=== PATIENT | male | born 1975 | race Two or more races ===

== ENCOUNTER 2019-03-18 13:01 | Inpatient (IN) | payer OTHER ==
--- NOTE | 2019-03-18 13:57 | ED ---
General Adult HPI - General Source: EMS Mode of arrival: EMS Limitations: no limitations <Bonifacio Coleman - Last Filed: 03/18/19 17:10> <Reuben Mckeon - Last Filed: 03/18/19 18:59> - General Chief complaint: Psychiatric Symptoms Stated complaint: Mental health Time Seen by Provider: 03/18/19 13:11 - History of Present Illness Initial comments: Dictation was produced using [employer] dictation software. please excuse any grammatical, word or spelling errors. Chief Complaint: 43-year-old male petition for psychiatric complaint. History of Present Illness: Patient is a 43-year-old male. He is a daily EtOH abuser. He was brought in by EMS. Patient allegedly told his family member that he was suicidal and wanted to kill himself. EMS reports that family reports he has history of chronic stress disorder. Been depressed lately and is having thoughts of suicide. Reports that he wants to jump off a month. Patient did report daily EtOH today. Medical complaints at this time. The ROS documented in this emergency department record has been reviewed and confirmed by me. Those systems with pertinent positive or negative responses have been documented in the HPI. All other systems are other negative and/or noncontributory. PHYSICAL EXAM: General Impression: Alert and oriented x3, not in acute distress HEENT: Normocephalic atraumatic, extra-ocular movements intact, pupils equal and reactive to light bilaterally, mucous membranes moist. Cardiovascular: Heart regular rate and rhythm, S1&S2 audible, no murmurs, rubs or gallops Chest: Lungs clear to auscultation bilaterally, no rhonchi, no wheeze, no rales Abdomen: Bowel sounds present, abdomen soft, non-tender, non-distended, no organomegaly Musculoskeletal: Pulses present and equal in all extremities, no peripheral edema Motor: no focal deficits noted Neurological: CN II-XII grossly intact, no focal motor or sensory deficits noted Skin: Intact with no visualized rashes Psych: Normal affect and mood ED course: 43 y Old male presents with suicidal ideation. Patient is a daily alcohol drinker. Patient clinically inebriated. Vital signs upon arrival shows heart rate of 108 hours vital signs within acceptable limits. Pending labs. Patient is sent out to Dr. Mckeon for follow-up of pending labs. (Bonifacio Coleman) - Related Data Home Medications Medication Instructions Recorded Confirmed Omeprazole 20 mg PO DAILY 03/18/19 03/18/19 Allergies Allergy/AdvReac Type Severity Reaction Status Date / Time No Known Allergies Allergy Verified 03/18/19 13:33 Review of Systems ROS Other: All systems not noted in ROS Statement are negative. <Bonifacio Coleman - Last Filed: 03/18/19 17:10> ROS Other: All systems not noted in ROS Statement are negative. <Reuben Mckeon - Last Filed: 03/18/19 18:59> ROS Statement: Those systems with pertinent positive or pertinent negative responses have been documented in the HPI. Past Medical History Past Medical History: Hypertension History of Any Multi-Drug Resistant Organisms: None Reported Additional Past Surgical History / Comment(s): throat surgery to remove polyps Past Psychological History: PTSD Past Alcohol Use History: Occasional Past Drug Use History: None Reported <Bonifacio Coleman - Last Filed: 03/18/19 17:10> General Exam Limitations: no limitations <Bonifacio Coleman - Last Filed: 03/18/19 17:10> Course Vital Signs 03/18/19 13:30 Temperature 98.1 F Pulse Rate 108 H Respiratory 18 Rate Blood Pressure 181/151 O2 Sat by Pulse 97 Oximetry Medical Decision Making - Lab Data Result diagrams: 03/18/19 17:28 03/18/19 17:28 <Reuben Mckeon - Last Filed: 03/18/19 18:59> - Medical Decision Making Patient's breath alcohol test was 295. I spoke with Dr. Schrader she agreed to admit the patient admitted the patient. (Reuben Mckeon) - Lab Data Lab Results 03/18/19 03/18/19 03/18/19 Range/Units 17:28 17:28 17:28 WBC 3.6 L (3.8-10.6) k/uL RBC 4.33 (4.30-5.90) m/uL Hgb 15.4 (13.0-17.5) gm/dL Hct 44.6 (39.0-53.0) % MCV 102.9 H (80.0-100.0) fL MCH 35.6 H (25.0-35.0) pg MCHC 34.6 (31.0-37.0) g/dL RDW 13.4 (11.5-15.5) % Plt Count 207 (150-450) k/uL Neutrophils % 52 % Lymphocytes % 27 % Monocytes % 15 % Eosinophils % 3 % Basophils % 1 % Neutrophils # 1.9 (1.3-7.7) k/uL Lymphocytes # 1.0 (1.0-4.8) k/uL Monocytes # 0.5 (0-1.0) k/uL Eosinophils # 0.1 (0-0.7) k/uL Basophils # 0.0 (0-0.2) k/uL Macrocytosis Slight Sodium 145 (137-145) mmol/L Potassium 4.9 (3.5-5.1) mmol/L Chloride 105 (98-107) mmol/L Carbon Dioxide 28 (22-30) mmol/L Anion Gap 12 mmol/L BUN 5 L (9-20) mg/dL Creatinine 0.72 (0.66-1.25) mg/dL Est GFR (CKD-EPI)AfAm >90 (>60 ml/min/1.73 sqM) Est GFR (CKD-EPI)NonAf >90 (>60 ml/min/1.73 sqM) Glucose 105 H (74-99) mg/dL Calcium 9.5 (8.4-10.2) mg/dL Magnesium 1.7 (1.6-2.3) mg/dL Disposition <Bonifacio Coleman - Last Filed: 03/18/19 17:10> Time of Disposition: 18:59 <Reuben Mckeon - Last Filed: 03/18/19 18:59> Clinical Impression: Alcohol intoxication, Suicidal ideations Disposition: ADMITTED IP TO THIS HOSP Referrals: [facility],Clinic [Primary Care Provider] - 1-2 days
[2019-03-18 17:39] LABS: Basophils % (A) 1 %; Eosinophils # (A) 0.1 k/uL (0-0.7); Eosinophils % (A) 3 %; HCT 44.6 % (39.0-53.0); HGB 15.4 gm/dL (13.0-17.5); Lymphocytes % (A) 27 %; MCH 35.6 pg (25.0-35.0); MCHC 34.6 g/dL (31.0-37.0); MCV 102.9 fL (80.0-100.0); Macrocytosis Slight; Monocytes # (A) 0.5 k/uL (0-1.0); Monocytes % (A) 15 %; Neutrophils # (A) 1.9 k/uL (1.3-7.7); Neutrophils % (A) 52 %; Platelet Count 207 k/uL (150-450); RBC 4.33 m/uL (4.30-5.90); RDW 13.4 % (11.5-15.5); WBC 3.6 k/uL (3.8-10.6)
[2019-03-18 17:48] LABS: Anion Gap 12 mmol/L; Blood Urea Nitrogen 5 mg/dL (9-20); Calcium 9.5 mg/dL (8.4-10.2); Carbon Dioxide 28 mmol/L (22-30); Chloride 105 mmol/L (98-107); Glucose 105 mg/dL (74-99); Potassium 4.9 mmol/L (3.5-5.1); Sodium 145 mmol/L (137-145)
[2019-03-18] MEDS ORDERED: LORazepam 1 MG TAB PO STA (17:49)
[2019-03-18] MEDS ORDERED: SODIUM CHLORIDE 0.9% 1,000 ML IV ONE (19:00)
[2019-03-18] MEDS ORDERED: LORazepam 2 MG/ML INJ IV PRN ×2 (19:01)
[2019-03-18] MEDS ORDERED: THIAMINE 100 MG/ML 2 ML VIAL IM STA (19:01)
[2019-03-18 20:50] LABS: Amphetamine Screen,Urine Not Detected (NotDetected); Barbiturate Screen,Urine Not Detected (NotDetected); Benzodiazepines Screen,Urine Detected (NotDetected); Cocaine Screen,Urine Not Detected (NotDetected); Methadone Screen, Urine Not Detected (NotDetected); Opiate Screen,Urine Not Detected (NotDetected); Oxycodone Screen, Urine Not Detected (NotDetected); Phencyclidine Screen,Urine Not Detected (NotDetected); Tricyclic Antidepressant,Urine Not Detected (NotDetected); Urn Cannabinoid Scrn Not Detected (NotDetected)
[2019-03-18 21:23] VITALS: BMI 25.8
[2019-03-19] MEDS: LORazepam 2 MG/ML INJ IV PRN ×2 (02:53→08:35)
[2019-03-19] MEDS ORDERED: THIAMINE 100 MG TAB PO SCH (07:30)
[2019-03-19 12:02] VITALS: BP 114/55; PULSE 78; RESP 17; TEMP 98.4
--- NOTE | 2019-03-19 15:18 | P.HPIM ---
History of Present Illness 43-year-old gentleman was a brought into the hospital as he was abusing alcohol patient last drink was yesterday. Patient drinks about 15 drinks of wine a day. He denies using on regular basis he says he doesn't drink whenever his daughter is with him which is on alternate days and weekends. Although patient is having active withdrawals at this time. Patient apparently was suicidal when he was drinking although patient denied any suicidal ideations at this time. Patient has a sitter and psychiatric was consulted. Patient is willing to quit alcohol but he says he cannot stay in the hospital upon extensive counseling patient is willing to stay at until tomorrow morning even after clearance by psychiatry. Review of Systems REVIEW OF SYSTEMS: CONSTITUTIONAL: No fever, no malaise, no fatigue. HEENT: No recent visual problems or hearing problems. Denied any sore throat. CARDIOVASCULAR: No chest pain, orthopnea, PND, no palpitations, no syncope. PULMONARY: No shortness of breath, no cough, no hemoptysis. GASTROINTESTINAL: No diarrhea, no nausea, no vomiting, no abdominal pain. NEUROLOGICAL: No headaches, no weakness, no numbness. HEMATOLOGICAL: Denies any bleeding or petechiae. GENITOURINARY: Denies any burning micturition, frequency, or urgency. MUSCULOSKELETAL/RHEUMATOLOGICAL: Denies any joint pain, swelling, or any muscle pain. ENDOCRINE: Denies any polyuria or polydipsia. The rest of the 14-point review of systems is negative. Past Medical History Past Medical History: Hypertension Additional Past Medical History / Comment(s): punctured right ear drum; scrapnel wound right posterior leg History of Any Multi-Drug Resistant Organisms: None Reported Additional Past Surgical History / Comment(s): throat surgery to remove polyps Past Anesthesia/Blood Transfusion Reactions: Postoperative Nausea & Vomiting (PONV) Past Psychological History: PTSD Smoking Status: Former smoker Past Alcohol Use History: Occasional Past Drug Use History: None Reported - Past Family History Daughter(s) Family Medical History: No Reported History Father Family Medical History: Hypertension Additional Family Medical History / Comment(s): choley Medications and Allergies Home Medications Medication Instructions Recorded Confirmed Type Omeprazole 20 mg PO DAILY 03/18/19 03/18/19 History Allergies Allergy/AdvReac Type Severity Reaction Status Date / Time No Known Allergies Allergy Verified 03/18/19 13:33 Physical Exam Vitals: Vital Signs Temp Pulse Pulse Resp BP BP Pulse Ox 03/19/19 12:01 98.4 F 78 17 114/55 97 03/19/19 05:13 98.2 F 83 18 159/101 98 03/18/19 20:48 97.8 F 100 18 155/99 98 03/18/19 19:54 97.9 F 98 200 H 140/98 99 03/18/19 19:00 98.3 F 89 20 165/72 99 Intake and Output 03/19/19 03/19/19 03/19/19 06:59 14:59 22:59 Intake Total 500 Balance 500 Intake: Intake, IV Titration 500 Amount Sodium Chloride 0.9% 1, 500 000 ml @ 100 mls/hr IV . Q10H ONE Rx#:[id number] Other: Voiding Method Toilet # Voids 3 PHYSICAL EXAMINATION: GENERAL: The patient is alert and oriented x3, not in any acute distress. Well developed, well nourished. patient is tremulous, anxious HEENT: Pupils are round and equally reacting to light. EOMI. No scleral icterus. No conjunctival pallor. Normocephalic, atraumatic. No pharyngeal erythema. No thyromegaly. CARDIOVASCULAR: S1 and S2 present. No murmurs, rubs, or gallops. PULMONARY: Chest is clear to auscultation, no wheezing or crackles. ABDOMEN: Soft, nontender, nondistended, normoactive bowel sounds. No palpable organomegaly. MUSCULOSKELETAL: No joint swelling or deformity. EXTREMITIES: No cyanosis, clubbing, or pedal edema. NEUROLOGICAL: Gross neurological examination did not reveal any focal deficits. SKIN: No rashes. Results CBC & Chem 7: 03/18/19 17:28 03/18/19 17:28 Labs: Abnormal Lab Results - Last 24 Hours (Table) 03/18/19 03/18/19 03/18/19 Range/Units 17: 17: 20:15 WBC 3.6 L (3.8-10.6) k/uL MCV 102.9 H (80.0-100.0) fL MCH 35.6 H (25.0-35.0) pg BUN 5 L (9-20) mg/dL Glucose 105 H (74-99) mg/dL U Benzodiazepines Scrn Detected H (NotDetected) Thrombosis Risk Factor Assmnt - Choose All That Apply Any of the Below Risk Factors Present?: Yes Each Factor Represents 1 point: Age 41-60 years, Obesity (BMI >25) Other Risk Factors: No Other congenital or acquired thrombophilia - If yes, enter type in comment: No Thrombosis Risk Factor Assessment Total Risk Factor Score: 2 Thrombosis Risk Factor Assessment Level: Low Risk Assessment and Plan Plan: -delirium tremens, alcohol withdrawal: Patient is on Ativan CWP protocol IV fluids thiamine multivitamin supplementation which will be continued patient was started on Protonix as well -alcohol abuse: Counseling was provided -possible suicidal ideation and depression: Psychiatric was consulted -DVT prophylaxis: Early ambulation
--- NOTE | 2019-03-19 16:00 | P.CN ---
Psychiatric Consult - . Consult date: 03/19/19 Consult:: 03/19/19 15:55 Suicidal Assessment and Plan (1) Adjustment disorder Narrative/Plan: 43-year-old gentleman was a brought into the hospital as he was abusing alcohol patient last drink was yesterday. Patient drinks about 15 drinks of wine a day. He denies using on regular basis he says he doesn't drink whenever his daughter is with him which is on alternate days and weekends. Although patient is having active withdrawals at this time. Patient apparently was suicidal when he was drinking although patient denied any suicidal ideations at this time. Patient has a sitter and psychiatric was consulted. Patient is willing to quit alcohol . Past Medical History Past Medical History: Hypertension Additional Past Medical History / Comment(s): punctured right ear drum; scrapnel wound right posterior leg History of Any Multi-Drug Resistant Organisms: None Reported Additional Past Surgical History / Comment(s): throat surgery to remove polyps Past Anesthesia/Blood Transfusion Reactions: Postoperative Nausea & Vomiting (PONV) Past Psychological History: PTSD Smoking Status: Former smoker Past Alcohol Use History: Occasional Past Drug Use History: None Reported - Past Family History Daughter(s) Family Medical History: No Reported History Father Family Medical History: Hypertension Additional Family Medical History / Comment(s): choley Medications and Allergies Home Medications Medication Instructions Recorded Confirmed Type Omeprazole 20 mg PO DAILY 03/18/19 03/18/19 History Allergies Allergy/AdvReac Type Severity Reaction Status Date / Time No Known Allergies Allergy Verified 03/18/19 13:33 Mental status examination: The patient presents alert, pleasant, and cooperative. There calmly seated without any agitated behavior. He reports that [his] mood is good. Affect is congruent and euthymic. [He] deny having any suicidal or homicidal ideation intent or plan. [He] denies any auditory or visual hallucinations. There is no evidence of any delusional thought content. [His] thought process is linear and goal-directed. [His] speech is fluent and nonpressured. [His] memory and concentration is grossly intact for the purposes of this session. Psychiatric impression: Adjustment disorder recent divorce Psychiatric recommendations: When medically stable able to discharge patient. He is not suicidal nor homicidal. He is not a candidate for [address] [place] [address]. [facility] and [facility] has an appointment coming up for counseling. Thank you for the wonderful consult enjoyed the patient immensely Harry Hernandez D.O. PhD Current Visit: Yes Status: Acute Priority: Low Code(s): F43.20 - ADJUSTMENT DISORDER, UNSPECIFIED SNOMED Code(s): 60933959 Time with Patient: Less than 30
--- NOTE | 2019-03-19 17:16 | P.DS ---
Providers Date of admission: 03/19/19 09:59 Attending physician: Paco Sanz MD Consults: 03/18/19 23:45 Consult Physician Urgent Consulting Provider: Harry Hernandez Consult Reason/Comments: suicidal ideations, etoh intox Do you want consulting provider notified?: Already Contacted Primary care physician: [facility] Hospital Course: Patient left AGAINST MEDICAL ADVICE Plan - Discharge Summary Discharge Rx Participant: No New Discharge Prescriptions: No Action Omeprazole 20 mg PO DAILY Discharge Medication List Omeprazole 20 mg PO DAILY 03/18/19 [History] Follow up Appointment(s)/Referral(s): [facility],Clinic [Primary Care Provider] - 1-2 days Discharge Disposition: Left Against Medical Advice
[2019-03-20] MEDS ORDERED: PANTOPRAZOLE 40 MG TABLET PO SCH (07:30)
== END 2019-03-19 16:50 | disposition left against medical advice (07) | DRG 894 ==
LOC: EC 13:01 → 3NMEDONC 19:00 → OBSVTOIN 03-19 09:59
PROVIDERS: ADMIT Internal Medicine; ATTEND Internal Medicine
DX: F10.231 Alcohol dependence with withdrawal delirium (principal); R45.851 Suicidal ideations; F43.20 Adjustment disorder, unspecified; Y90.8 Blood alcohol level of 240 mg/100 ml or more; E66.9 Obesity, unspecified; I10 Essential (primary) hypertension; F10.229 Alcohol dependence with intoxication, unspecified; F43.10 Post-traumatic stress disorder, unspecified; Z87.891 Personal history of nicotine dependence; Z82.49 Family history of ischemic heart disease and other diseases of the circulatory system; Z79.899 Other long term (current) drug therapy; Z71.41 Alcohol abuse counseling and surveillance of alcoholic; Z68.26 Body mass index [BMI] 26.0-26.9, adult
CPT/HCPCS: 36415; 80048; 80306; 82075; 83735; 85025; 96372; 99285

== ENCOUNTER 2019-03-31 07:56 | Emergency (ER) | payer OTHER ==
--- NOTE | 2019-03-31 09:37 | ED ---
Psych HPI - General Chief Complaint: Psychiatric Symptoms Stated Complaint: pickle maker order Time Seen by Provider: 03/31/19 08:08 Source: patient, police, RN notes reviewed Mode of arrival: ambulatory Limitations: no limitations - History of Present Illness Initial Comments: 43-year-old male presents emergency Department with chief complaint of psychiatric evaluation. Patient was picked up by for court order petition. Patient is petition by sister stating that patient threatened to kill himself. Patient denies being suicidal. Patient states he did have a stressful night at work states that he lost his keys had to break into his house and did admit to drinking some wine. Patient denies alcohol abuse denies drug abuse denies homicidal ideation no physical complaints. - Related Data Home Medications Medication Instructions Recorded Confirmed Omeprazole 20 mg PO DAILY 03/18/19 03/31/19 Lisinopril-Hctz 10-12.5 mg 1 tab PO DAILY 03/31/19 03/31/19 [Zestoretic 10-12.5] Allergies Allergy/AdvReac Type Severity Reaction Status Date / Time No Known Allergies Allergy Verified 03/31/19 08:27 Review of Systems ROS Statement: Those systems with pertinent positive or pertinent negative responses have been documented in the HPI. ROS Other: All systems not noted in ROS Statement are negative. Past Medical History Past Medical History: Hypertension Additional Past Medical History / Comment(s): punctured right ear drum; scrapnel wound right posterior leg History of Any Multi-Drug Resistant Organisms: None Reported Additional Past Surgical History / Comment(s): throat surgery to remove polyps Past Anesthesia/Blood Transfusion Reactions: Postoperative Nausea & Vomiting (PONV) Past Psychological History: PTSD Smoking Status: Former smoker Past Alcohol Use History: Occasional Past Drug Use History: None Reported - Past Family History Daughter(s) Family Medical History: No Reported History Father Family Medical History: Hypertension Additional Family Medical History / Comment(s): choley General Exam Limitations: no limitations General appearance: alert, in no apparent distress Head exam: Present: atraumatic, normocephalic, normal inspection Neck exam: Present: normal inspection. Absent: tenderness, meningismus, lymphadenopathy Respiratory exam: Present: normal lung sounds bilaterally. Absent: respiratory distress, wheezes, rales, rhonchi, stridor Cardiovascular Exam: Present: regular rate, normal rhythm, normal heart sounds. Absent: systolic murmur, diastolic murmur, rubs, gallop, clicks GI/Abdominal exam: Present: soft, normal bowel sounds. Absent: distended, tenderness, guarding, rebound, rigid Neurological exam: Present: alert, oriented X3, CN II-XII intact Psychiatric exam: Present: normal affect, normal mood Skin exam: Present: warm, dry, intact, normal color. Absent: rash Course Vital Signs 03/31/19 08:03 Temperature 97.8 F Pulse Rate 108 H Respiratory 22 Rate Blood Pressure 133/94 O2 Sat by Pulse 99 Oximetry Medical Decision Making - Medical Decision Making 43-year-old male presented for psychiatric evaluation. Patient evaluated by EPS case discussed with psychiatrist recommended discharge. Patient stats suicidal or homicidal Disposition Clinical Impression: Depression, Alcohol intoxication Disposition: HOME SELF-CARE Condition: Stable Instructions (If sedation given, give patient instructions): Depression (ED) Additional Instructions: Please return to the Emergency Department if symptoms worsen or any other concerns. Is patient prescribed a controlled substance at d/c from ED?: No Referrals: [facility],Clinic [Primary Care Provider] - 1-2 days Time of Disposition: 10:52
[2019-03-31 11:36] VITALS: BP 137/98; PULSE 100; RESP 16; TEMP 96.7
[2019-03-31 11:39] LABS: Amphetamine Screen,Urine Not Detected (NotDetected); Barbiturate Screen,Urine Detected (NotDetected); Benzodiazepines Screen,Urine Not Detected (NotDetected); Cocaine Screen,Urine Not Detected (NotDetected); Methadone Screen, Urine Not Detected (NotDetected); Opiate Screen,Urine Not Detected (NotDetected); Oxycodone Screen, Urine Not Detected (NotDetected); Phencyclidine Screen,Urine Not Detected (NotDetected); Tricyclic Antidepressant,Urine Not Detected (NotDetected); Urn Cannabinoid Scrn Not Detected (NotDetected)
== END 2019-03-31 11:30 | disposition home or self-care (01) ==
LOC: EC 07:56
DX: F32.9 Major depressive disorder, single episode, unspecified (principal); F10.129 Alcohol abuse with intoxication, unspecified; I10 Essential (primary) hypertension; Z79.899 Other long term (current) drug therapy; Z87.891 Personal history of nicotine dependence
CPT/HCPCS: 80306; 82075; 99285